=== PATIENT | male | born 1965 | race Caucasian/White ===

== ENCOUNTER 2021-12-15 12:40 | Emergency (ER) | payer MEDICARE, SELFPAY ==
[2021-12-15 12:49] VITALS: BP 134/102; PULSE 92; RESP 16; TEMP 36.6; O2SAT 99
--- NOTE | 2021-12-15 13:12 | ED.DENTAL ---
HPI - Dental/Oral General Chief complaint: Dental/Oral Stated complaint: infected tooth Time Seen by Provider: 12/15/21 13:12 History of Present Illness MD Complaint: tooth pain Location: Tooth # (tooth 1,2) Relieving factors: NSAIDs Related Data Allergies Allergy/AdvReac Type Severity Reaction Status Date / Time Penicillins Allergy Unknown Unknown Verified 12/15/21 13:16 Review of Systems Review of Systems: CONSTITUTIONAL: Denies chills, or sweats. Reports fever and generalized body aches EYES: Denies visual changes, redness, or discharge. ENT: Denies otalgia. Reports nasal congestion runny nose and sore throat NO FEVER. NO JAW SWELLING. NO NECK SWELLING. NO LIMITATION WITH SPEAKING OR SWALLOWING. HAS A HISTORY OF DENTAL CARIES. HAS NOT SEEN A DENTIST RECENTLY. CARDIOVASCULAR: Denies chest pain, palpitations, or edema. RESPIRATORY: Denies dyspnea. Reports occasional cough GASTROINTESTINAL: Denies abdominal pain, nausea, vomiting, or diarrhea. GENITOURINARY: Denies dysuria or hematuria. SKIN: Denies rash or itching. MUSCULOSKELETAL: Denies back pain, joint pain, or myalgia. Reports generalized body aches NEUROLOGIC: Denies headache, numbness, or weakness. PSYCHIATRIC: Denies anxiety or depression. [facility] Family History Family History (Updated 06/04/12 @ 10:46 by DOCTOR UNKNOWN) Other Hypertension Social History Social History Smoking status: Never smoker Alcohol intake: never Comments At time of signature, agree with nursing past medical, surgical, social and family history. There is no relevant family history pertinent to the presenting complaint Exam Narrative: GENERAL: Well-appearing, well-nourished, and in no acute distress. HEAD: Normocephalic, atraumatic. EYES: PERRLA and EOMI. ENT: Nares clear, no rhinorrhea or epistaxis. Mucous membranes moist. NO FEVER. NO JAW SWELLING. NO NECK SWELLING. NO LIMITATION WITH SPEAKING OR SWALLOWING. HAS A HISTORY OF DENTAL CARIES. HAS NOT SEEN A DENTIST RECENTLY. Pain to left upper tooth see diagram below NO MISBAH APICAL SWELLING, TOOTH TENDER TO PALPATION. NO FACIAL SWELLING. NO TRISMUS. ABLE TO OPEN MOUTH FULLY. NO NECK SWELLING OR BARBARA'S ANGINA. NO ABSCESS TO BE DRAINED. no drooling, trismus, facial asymmetry or significant neck swellingNECK: Supple. CHEST: Clear to auscultation. No respiratory distress. HEART: Regular rate and rhythm. No murmur heard. Normal peripheral pulses. ABDOMEN: Soft, nontender, nondistended, normal active bowel sounds. EXTREMITIES: Normal range of motion. No edema. SKIN: Warm, dry, no rash. NEURO: No focal deficits. Alert and oriented x3. [place] Coma Scale Eye Opening: Spontaneous 4 [place] Coma Scale Motor: Obeys Commands 6 [place] Coma Scale Verbal: Oriented 5 [place] Coma Scale Total 15 Course Course Level of Care: Express Care Visit Vital Signs Vital signs: Vital Signs Temperature 36.6 C 12/15/21 12:49 Pulse Rate 92 12/15/21 12:49 Respiratory Rate 16 12/15/21 12:49 Blood Pressure 134/102 H 12/15/21 12:49 Pulse Oximetry 99 12/15/21 12:49 Temperature 36.6 C 12/15/21 12:49 Pulse Rate 92 12/15/21 12:49 Respiratory Rate 16 12/15/21 12:49 Blood Pressure 134/102 H 12/15/21 12:49 Pulse Oximetry 99 12/15/21 12:49 Addressed elevated BP today. Today's blood pressure higher than recommended range. Discussed importance of follow -up with PCP and possible meterman effects/cardiovascular events related to HTN. Currently patient denies headache, dizziness, vision changes, CP or shortness of breath. Critical dx considered and discussed with pt. Educated patient on red flag s/s and to go to ED if s/s occur. Discussed with pt when to return to [facility] or primary care provider. Pt gave verbal undertstanding, all questions were answered, and pt was agreeable to plan MDM - Dental/Oral Differential Diagnosis Differential diagnosis: Likely gingival abscess, dental caries, toothache, dental abscess, f
== END 2021-12-15 13:22 | disposition home or self-care (01) ==
PROVIDERS: Emergency Provider Nurse Practitioner Family; PCP Internal Medicine
DX: K02.9 Dental caries, unspecified (principal); Z86.16 Personal history of COVID-19
CPT/HCPCS: 99213; G0463